=== PATIENT | female | born 1955 | race Caucasian/White ===

== ENCOUNTER 2017-05-03 13:39 | Emergency (ER) | payer OTHER ==
[~2017-05-03] VITALS: Ht 175.3 cm; Wt 90.0 kg
[~2017-05-03 13:39] MED LIST: AMLO2.5T PO; ATOR20TA PO; KETO10 PO; METO25 PO; PARO1CAP PO; ROBA500T PO; TRAM100T19 PO
[2017-05-03 13:49] VITALS: BP 140/65; PULSE 74; RESP 16; TEMP 98.8; O2SAT 98
[2017-05-03] MEDS ORDERED: ESCI20TA PO (14:44)
[2017-05-03] MEDS ORDERED: DILT0.05 PO (14:44)
[2017-05-03] MEDS ORDERED: LOSA50TA2 PO (14:44)
[2017-05-03] MEDS ORDERED: ASPI-516 CHEW (14:44)
--- NOTE | 2017-05-03 15:25 | RADRPT ---
EXAM DATE/TIME: 05/03/2017 14:04 [facility] COMPARISON: KNEE RIGHT COMPLETE (4VWS), October 28, 2010, 13:29. INDICATIONS : Right knee pain after twisting and falling yetserday. MEDICAL HISTORY : Hypertension. Myocardial infarction. SURGICAL HISTORY : section. ACL repair. ENCOUNTER: Initial ACUITY: 2 days PAIN SCORE: 1/10 LOCATION: Right lateral knee. FINDINGS: The osseous structures are intact without evidence for acute fracture. Mild joint space narrowing and osteophyte formation in all 3 compartments. No significant effusion. Redemonstration of probable ost eochondroma in the distal lateral right femur. Soft tissues are unremarkable. CONCLUSION: 1. No acute fracture or dislocation. 2. Mild tricompartmental degenerative osteoarthritis. 3. Stable osteochondroma of the medial distal femur. César Jiang MD on May 03, 2017 at 15:21 Board Certified Radiologist. This report was verified electronically.
[2017-05-03] MEDS ORDERED: NORC5TAB PO (15:36)
--- NOTE | 2017-05-03 15:36 | PD ---
HPI Chief Complaint: Injury Time Seen by Provider: 14:28 Travel History International Travel<30 days: No Contact w/Intl Traveler<30days: No Traveled to known affect area: No History of Present Illness HPI 61 year old female here with right lateral ankle pain and swelling after twisting injury last night. She denies paresthesia or weakness of the extremity. She reports pain with weightbearing and range of motion. Pain scale 5/10. PFSH Past Medical History Blood Disorders: No Anxiety: Yes Depression: Yes Heart Rhythm Problems: Yes (AFIB) Cancer: No Cardiac Catheterization: Yes Cardiovascular Problems: Yes (PALPITATIONS) High Cholesterol: No Chemotherapy: No Chest Pain: Yes Congestive Heart Failure: No Diminished Hearing: No Endocrine: No Genitourinary: No Immune Disorder: No Implanted Vascular Access Dvce: Yes Musculoskeletal: Yes Neurologic: No Psychiatric: Yes Reproductive: No Respiratory: No Immunizations Current: Yes Myocardial Infarction: Yes Influenza Vaccination: No ?: Not LMP: MENOPAUSAL Menopausal: Yes Past Surgical History Abdominal Surgery: No Body Medical Devices: SCREWS AND PLATE IN NECK AT C6 Cardiac Surgery: Yes (CARDIAC CATH, ABLATIONX2) Section: Yes Ear Surgery: No Endocrine Surgery: No Eye Surgery: No Genitourinary Surgery: No Gynecologic Surgery: Yes () Neurologic Surgery: Yes (NECK-C6) Oral Surgery: No Thoracic Surgery: No Other Surgery: Yes (/C-6 FUSION/R KNEE/BREAST AUGMENTATION) Social History Alcohol Use: Yes (MODERATE) Tobacco Use: No Substance Use: No Allergies-Medications (Allergen,Severity, Reaction): Coded Allergies: diatrizoate meglumine (Unverified Allergy, Severe, Hives, 05/03/17) gadobenic acid (Unverified Allergy, Severe, Hives, 05/03/17) gadodiamide (Unverified Allergy, Severe, Hives, 05/03/17) gadoteridol (Unverified Allergy, Severe, Hives, 05/03/17) iodixanol (Unverified Allergy, Severe, Hives, 05/03/17) iohexol (Unverified Allergy, Severe, Hives, 05/03/17) Reported Meds & Prescriptions Reported Meds & Active Scripts Active Reported Losartan-Hydrochlorothiazide 50-12.5 Mg Tab 1 Tab PO DAILY Aspirin 81 Mg Chew 81 Mg CHEW DAILY Escitalopram (Escitalopram Oxalate) 20 Mg Tab 20 Mg PO DAILY Diltiazem ER 24 HR 180 Mg Naveen 180 Mg PO DAILY Review of Systems Except as stated in HPI: all other systems reviewed are Neg Physical Exam Narrative GENERAL: Alert well-appearing female in no distress. SKIN: Warm and dry. HEAD: Normocephalic. EYES: No scleral icterus. No injection or drainage. NECK: Supple, trachea midline. No JVD or lymphadenopathy. MUSCULOSKELETAL: No cyanosis, or edema. Right lower extremity: Notable tenderness and swelling to the lateral malleolus. The joint is stable. 2+ dorsal pedis pulses. Brisk cap refill. Normal sensation BACK: Nontender without obvious deformity. No CVA tenderness. Data Data Last Documented VS Vital Signs Date Time Temp Pulse Resp B/P (MAP) Pulse Ox O2 Delivery O2 Flow Rate FiO2 05/03/17 13:49 98.8 74 16 140/65 (90) 98 Orders Orders Ankle, Complete ([id number]) (05/03/17 13:57) Knee, Complete (4vws) (05/03/17 13:57) Splint Or Brace Apply/Monitor (05/03/17 15:29) Crutches (05/03/17 15:29) MDM Medical Decision Making Medical Screen Exam Complete: Yes Emergency Medical Condition: Yes Differential Diagnosis Ankle fracture, ankle sprain, contusion Narrative Course 61-year-old female with right ankle pain after twisting injury last night. Patient has notable swelling and ecchymosis to the lateral malleolus. The joint is stable. 2+ distal pulses. Normal sensation. X-ray reveal a distal fibular fracture in good alignment. Patient will be splinted and instructed to follow with orthopedics. She verbalizes understanding and agrees to plan Diagnosis Primary Impression: Fracture of distal end of fibula Qualified Codes: S82.831A - Other fracture of upper and lower end of right fibula, initial encounter for closed fracture Referrals: Orthopedist Additional Instructions: Ice and elevate the extremity. Keep the splint in place until follow-up with the orthopedic doctor. Use crutches for weightbearing. Disposition: 01 DISCHARGE HOME Condition: Stable BonifaciothelmaChristal CAPPS May 03, 2017 15:36
[2017-05-03 15:41] VITALS: BP 143/69
--- NOTE | 2017-05-03 15:44 | RADRPT ---
EXAM DATE/TIME: 05/03/2017 14:04 [facility] COMPARISON: No previous studies available for comparison. INDICATIONS : Right ankle pain after twisting ankle yesterday. MEDICAL HISTORY : Hypertension. Myocardial infarction. SURGICAL HISTORY : section. ACL repair. ENCOUNTER: Initial ACUITY: 2 days PAIN SCORE: 6/10 LOCATION: Right lateral ankle. FINDINGS: 3 views of the right ankle demonstrate an oblique minimally displaced fracture of the distal fibular metaphysis. Medially the fracture line extends to the level of the syndesmosis. The distal fragment i s displaced laterally by 2 mm. Ankle mortise is intact. No other fracture is seen. There is lateral a nkle soft tissue swelling. CONCLUSION: There is an acute minimally displaced oblique fracture of the distal fibular metaphysis. Adjacent sof t tissue swelling is present. Alex Lopez MD on May 03, 2017 at 15:41 Board Certified Radiologist. This report was verified electronically.
== END 2017-05-03 15:50 | disposition home or self-care (01) ==
LOC: PHEFT 13:39
DX: S82.831A Other fracture of upper and lower end of right fibula, initial encounter for closed fracture (principal); X50.1XXA Overexertion from prolonged static or awkward postures, initial encounter
CPT/HCPCS: 29515; 73564; 73610; 99283; E0113

== ENCOUNTER 2017-12-08 09:43 | Inpatient (IN) ==
[2017-12-08] MEDS ORDERED: Sodium Chlor 0.9% Inj 500 ML IV.SIG ONE (10:17)
--- NOTE | 2017-12-08 10:19 | ED ---
HPI General Chief Complaint: Recheck/Abnormal Lab/Rx Stated Complaint: Abnormal Labs /send by PCP Time Seen by Provider: 12/08/17 10:11 Source: patient Mode of arrival: ambulatory Limitations: no limitations History of Present Illness HPI narrative: 62-year-old female patient with history of 1 week of nausea, vomiting, diarrhea, not feeling well, weak, had been evaluated with primary care doctor and sent for labs yesterday, comes in sent by primary care physician today because of low sodium and potassium according to her. She denies any vomiting or diarrhea today. She has been having low-grade fever otherwise, denies other issues. Related Data Home Medications Medication Instructions Recorded Confirmed aspirin [Aspirin Low Dose] 81 mg PO DAILY 12/08/17 12/08/17 cetirizine 10 mg PO DAILY 12/08/17 12/08/17 cyanocobalamin (vitamin B-12) 1,000 mcg PO DAILY 12/08/17 12/08/17 [Vitamin B-12] diltiazem HCl 180 mg PO DAILY 12/08/17 12/08/17 escitalopram oxalate 20 mg PO DAILY 12/08/17 12/08/17 losartan-hydrochlorothiazide 1 tab PO DAILY 12/08/17 12/08/17 omeprazole magnesium 20 mg PO DAILY 12/08/17 12/08/17 Allergies Allergy/AdvReac Type Severity Reaction Status Date / Time diatrizoate meglumine Allergy Severe Hives Verified 12/08/17 10:02 gadobenic acid Allergy Severe Hives Verified 12/08/17 10:02 gadodiamide Allergy Severe Hives Verified 12/08/17 10:02 gadoteridol Allergy Severe Hives Verified 12/08/17 10:02 iodixanol Allergy Severe Hives Verified 12/08/17 10:02 iohexol Allergy Severe Hives Verified 12/08/17 10:02 Review of Systems Except as stated in HPI: all other systems reviewed are negative [facility] Medical History Medical History Atrial fibrillation (Acute) HTN (hypertension) (Acute) B12 deficiency (Acute) Depression (Acute) GERD (gastroesophageal reflux disease) (Acute) Surgical History Surgical History History of (Acute) History of breast augmentation (Acute) History of cardiac radiofrequency ablation (Acute) S/P right knee arthroscopy (Acute) Social History Social History Substance History: No History of Abuse Second Hand Smoke Exposure: No Smoking Status: Never smoker How Often Do You Have a Drink Containing Alcohol: 4 or more times a week Recent Travel in [facility] within the Last 8 Weeks: No Recent Out of Country Travel within the Last 8 Weeks: No Exam Narrative Exam Narrative: GENERAL: Well-developed elderly female patient currently in mild distress. Awake and oriented 3. SKIN: Focused skin assessment warm/dry. HEAD: Atraumatic. Normocephalic. EYES: Pupils equal and round. No scleral icterus. No injection or drainage. ENT: No nasal bleeding or discharge. Mucous membranes pink and moist. NECK: Trachea midline. No JVD. CARDIOVASCULAR: Regular rate and rhythm. No murmur appreciated. RESPIRATORY: No accessory muscle use. Clear to auscultation. Breath sounds equal bilaterally. GASTROINTESTINAL: Abdomen soft, non-tender, nondistended. Hepatic and splenic margins not palpable. MUSCULOSKELETAL: No obvious deformities. No clubbing. No cyanosis. No edema. NEUROLOGICAL: Awake and alert. No obvious cranial nerve deficits. Motor grossly within normal limits. Normal speech. PSYCHIATRIC: Appropriate mood and affect; insight and judgment normal. Course Hospital Course: IV fluid normal saline bolus was given in the ER. Lab work shows severe hyponatremia with sodium of 123. Her potassium is okay. She appears to be dehydrated with elevated BUN and creatinine as well. At this point, my plan would be to admit her for further treatment of her electrolyte abnormality. Abdomen is fairly benign and not suspecting acute intra-abdominal process in this case. Case was discussed with Dr. Willson for admission. Initial Documented Vital Signs Temperature 99.1 F 12/08/17 09:58 Pulse Rate 89 12/08/17 09:58 Respiratory Rate 16 12/08/17 09:58 Blood Pressure 123/75 12/08/17 09:58 Pulse Oximetry 99 12/08/17 09:58 Last Documented Vital Signs Temperature 99.1 F 12/08/17 09:58 Pulse Rate 62 12/08/17 10:59 Respiratory Rate 16 12/08/17 10:59 Blood Pressure 120/69 12/08/17 10:59 Pulse Oximetry 97 12/08/17 10:59 Medical Decision Making Differential Diagnosis Differential Diagnosis: Dehydration versus electrolyte abnormalities versus lab error Lab Data Result diagrams: 12/08/17 10:30 12/08/17 10:30 Lab Results 12/08/17 12/08/17 Range/Units 10:30 10:30 CBC w Diff Auto diff final WBC 6.6 (4.0-11.0) th/mm3 RBC 3.89 L (4.00-5.30) mil/mm3 Hgb 13.3 (11.6-15.3) gm/dL Hct 39.1 (35.0-46.0) % MCV 100.6 H (80.0-100.0) fL MCH 34.3 H (27.0-34.0) pg MCHC 34.1 (32.0-36.0) % RDW 12.2 (11.6-17.2) % Plt Count 342 (150-450) th/mm3 MPV 7.7 (7.0-11.0) fL Neut % (Auto) 71.6 H (16.0-70.0) % Lymph % (Auto) 15.1 (9.0-44.0) % [place] % (Auto) 11.7 H (0.0-8.0) % Eos % (Auto) 1.2 (0.0-4.0) % Baso % (Auto) 0.4 (0.0-2.0) % Neut # (Auto) 4.7 (1.8-7.7) th/mm3 Lymph # (Auto) 1.0 (1.0-4.8) th/mm3 [place] # (Auto) 0.8 (0.0-0.9) th/mm3 Eos # (Auto) 0.1 (0.0-0.4) th/mm3 Baso # (Auto) 0.0 (0.0-0.2) th/mm3 WBC Differential . Differential Comment . Sodium 123 L* (136-145) meq/L Potassium 4.9 (3.5-5.1) meq/L Chloride 86 L (98-107) meq/L Carbon Dioxide 25.3 (21.0-32.0) meq/L Anion Gap 12 (5-15) meq/L BUN 29 H (7-18) mg/dL Creatinine 2.20 H (0.50-1.00) mg/dL Estimated GFR 23 L (>89) mL/min Random Glucose 138 H (74-106) mg/dL Calcium 9.7 (8.5-10.1) mg/dL Magnesium 1.2 L (1.5-2.5) mg/dL Total Bilirubin 0.6 (0.2-1.0) mg/dL AST 48 H (15-37) U/L ALT 38 (10-53) U/L Alkaline Phosphatase 127 H (45-117) U/L Total Protein 8.8 H (6.4-8.2) g/dL Albumin 4.0 (3.4-5.0) g/dL Discharge Plan Discharge Disposition Patient Disposition: 30 Still Patient Discharge Condition Condition: Stable Discharge Details Anticipated Discharge Date: 12/08/17 Diagnosis: Acute hyponatremia Physicians Team ED Provider: Sravanthi Calvo Primary Care Provider: Abdoul Green Rxs /Orders / Referrals /Forms Prescriptions: No Action diltiazem HCl 180 mg Capsule,Extended Release 24 Hr 180 mg PO DAILY RF: 0 cetirizine 10 mg Tablet 10 mg PO DAILY RF: 0 aspirin [Aspirin Low Dose] 81 mg Tablet,Delayed Release (Dr/Ec) 81 mg PO DAILY RF: 0 losartan-hydrochlorothiazide 50-12.5 mg Tablet 1 tab PO DAILY RF: 0 escitalopram oxalate 20 mg Tablet 20 mg PO DAILY RF: 0 omeprazole magnesium 20 mg Capsule,Delayed Release(Dr/Ec) 20 mg PO DAILY RF: 0 cyanocobalamin (vitamin B-12) [Vitamin B-12] 1,000 mcg Tablet 1,000 mcg PO DAILY RF: 0 Discharge Interventions Interventions: Vital Signs Last Done: 12/08/17 10:59 Status ED Status: With Doctor
[2017-12-08 10:58] LABS: Baso % (Auto) 0.4 % (0.0-2.0); Eos # (Auto) 0.1 th/mm3 (0.0-0.4); Eos % (Auto) 1.2 % (0.0-4.0); Hematocrit 39.1 % (35.0-46.0); Hemoglobin 13.3 gm/dL (11.6-15.3); Lymph % (Auto) 15.1 % (9.0-44.0); Mean Corpuscular HGB Conc 34.1 % (32.0-36.0); Mean Corpuscular Hemoglobin 34.3 pg (27.0-34.0); Mean Corpuscular Volume 100.6 fL (80.0-100.0); Mean Platelet Volume 7.7 fL (7.0-11.0); Mono # (Auto) 0.8 th/mm3 (0.0-0.9); Mono % (Auto) 11.7 % (0.0-8.0); Neut # (Auto) 4.7 th/mm3 (1.8-7.7); Neut % (Auto) 71.6 % (16.0-70.0); Platelet Count 342 th/mm3 (150-450); Red Blood Count 3.89 mil/mm3 (4.00-5.30); Red Cell Distribution Width 12.2 % (11.6-17.2); White Blood Count 6.6 th/mm3 (4.0-11.0)
[2017-12-08 11:18] LABS: Alanine Aminotransferase 38 U/L (10-53); Alkaline Phosphatase 127 U/L (45-117); Anion Gap 12 meq/L (5-15); Aspartate Aminotransferase 48 U/L (15-37); Blood Urea Nitrogen 29 mg/dL (7-18); Calcium 9.7 mg/dL (8.5-10.1); Carbon Dioxide 25.3 meq/L (21.0-32.0); Chloride 86 meq/L (98-107); Glomerular Filtration Rate 23 mL/min (>89); Glucose,Random 138 mg/dL (74-106); Magnesium 1.2 mg/dL (1.5-2.5); Total Protein 8.8 g/dL (6.4-8.2)
[2017-12-08 11:20] LABS: Potassium 4.9 meq/L (3.5-5.1); Sodium 123 meq/L (136-145)
[2017-12-08] MEDS ORDERED: Bisacodyl 10 MG Supp RECTAL PRN (12:33)
[2017-12-08] MEDS ORDERED: Temazepam 15 MG Capsule PO PRN (12:33)
[2017-12-08] MEDS ORDERED: Acetaminophen 325 MG Tablet PO PRN (12:33)
[2017-12-08] MEDS: Heparin - SQ 10,000 UNITS/ML Vial SQ SCH ×2 (12:56→23:53)
[2017-12-08] MEDS: Sod Chloride 0.9% Inj 1,000 ML IV.CONT SCH ×2 (12:56→21:45)
[2017-12-08] MEDS ORDERED: Haloperidol Inj 5 MG/ML Ampul IV.PUSH PRN (14:01)
[2017-12-08] MEDS ORDERED: LORazepam 1 MG Tablet PO PRN (14:01)
--- NOTE | 2017-12-08 14:03 | P.HP ---
History of Present Illness Primary Care Physician: Abdoul Green MD History of Present Illness: This is a pleasant 62-year-old female patient with a known medical history of alcohol abuse, hypertension and atrial fibrillation who presented to the ED with complaints of nausea, vomiting, diarrhea and fatigue 1 week. Patient also states that she had a subjective fever of 101.3 yesterday took Tylenol. Patient also admits to a 6 pound weight loss over the past week she has been unable to eat anything by mouth without vomiting it up. Patient denies any sick contacts. Patient also admits to diarrhea, clear in color. Also admits to drinking 4 alcoholic drinks per day. Patient visited her primary care doctor , was sent for labs and was told to come to the hospital due to hyponatremia. Upon presentation patient's labs sodium 123, creatinine 2.2, GFR 23, mag 1.2, K4.9. Patient will be admitted to the hospital for IV fluids and electrolytes monitoring. PCP was seen yesterday, no changes to her medicines. She denies any history of kidney disease. - Diagnosis (1) Acute hyponatremia (2) Acute kidney injury (3) Alcohol abuse Inpatient Certification: I certify that the inpatient services were ordered in accordance with Medicare regulations governing the order. This includes certification that hospital inpatient services are reasonable and necessary and in the case of services not specified as inpatient-only under 42 CFR 419.22(n), that they are appropriately provided as inpatient services in accordance to with the 2-midnight benchmark under 43 CFR 412.3(e) Estimated Total Length of Stay (Days): 3 Plans for Post Hospital Care: Home Review of Systems All other systems reviewed negative except as stated in HPI PMFSH - History History Provided By: Patient - Medical History Medical History: Medical History (Last Updated 12/08/17 @ 10:26 by Anya Villarreal) Atrial fibrillation HTN (hypertension) B12 deficiency Depression GERD (gastroesophageal reflux disease) - Surgical History Surgical History: Surgical History (Last Reviewed 12/08/17 @ 10:18 by Sravanthi Calvo MD) History of History of breast augmentation History of cardiac radiofrequency ablation S/P right knee arthroscopy - Family History Family History: Family History (Last Updated 12/08/17 @ 13:56 by Jolynn Narvaez) Mother Heart attack - Tobacco History Second Hand Smoke Exposure: No Smoking Status: Never smoker - Alcohol History How Often Do You Have a Drink Containing Alcohol: 4 or more times a week - Substance Use History Substance History: No History of Abuse - Travel History Recent Travel in the [place] Within the Last 8 Weeks: No Recent Travel Out of the Country Within the Last 8 Weeks: No - Immunization History Tetanus Immunization: >5 Years Hx Influenza Vaccine This Season: No Medications and Allergies Active Medications: Active Medications Acetaminophen (Tylenol) 650 mg PO Q4H PRN PRN Reason: Temp > 100.4 Al Hydroxide/Mg Hydroxide (Milk Of Magnesia Liq) 30 ml PO Q12H PRN PRN Reason: Mild Constipation Bisacodyl (Dulcolax Supp) 10 mg RECTAL DAILY PRN PRN Reason: SEVERE CONSITIPATION Heparin Sodium (Porcine) (Heparin Inj) 5,000 units SQ Q12H [facility] Last Admin: 12/08/17 12:56 Dose: 5,000 units Sodium Chloride (Ns Inj) 1,000 mls @ 100 mls/hr IV.CONT .Q10H [facility] Last Admin: 12/08/17 12:56 Dose: 100 mls/hr Lactulose (Lactulose Liq) 30 ml PO DAILY PRN PRN Reason: SEVERE CONSITIPATION Ondansetron HCl (Zofran Inj) 4 mg IV.PUSH Q6H PRN PRN Reason: NAUSEA OR VOMITING Senna/Docusate Sodium ([place]-Colace) 1 tab PO BID [facility] Sennosides (Senokot) 17.2 mg PO Q12H PRN PRN Reason: Moderate Constipation Temazepam (Restoril) 15 mg PO HS PRN PRN Reason: INSOMNIA Allergies Allergy/AdvReac Type Severity Reaction Status Date / Time diatrizoate meglumine Allergy Severe Hives Verified 12/08/17 10:02 gadobenic acid Allergy Severe Hives Verified 12/08/17 10:02 gadodiamide Allergy Severe Hives Verified 12/08/17 10:02 gadoteridol Allergy Severe Hives Verified 12/08/17 10:02 iodixanol Allergy Severe Hives Verified 12/08/17 10:02 iohexol Allergy Severe Hives Verified 12/08/17 10:02 Home Medications Medication Instructions Recorded Confirmed Type aspirin [Aspirin Low Dose] 81 mg PO DAILY 12/08/17 12/08/17 History cetirizine 10 mg PO DAILY 12/08/17 12/08/17 History cyanocobalamin (vitamin B-12) 1,000 mcg PO DAILY 12/08/17 12/08/17 History [Vitamin B-12] diltiazem HCl 180 mg PO DAILY 12/08/17 12/08/17 History escitalopram oxalate 20 mg PO DAILY 12/08/17 12/08/17 History losartan-hydrochlorothiazide 1 tab PO DAILY 12/08/17 12/08/17 History omeprazole magnesium 20 mg PO DAILY 12/08/17 12/08/17 History Exam Vital signs: Vital Signs 12/08/17 09:58 12/08/17 10:07 12/08/17 10:59 Temperature 99.1 F Pulse Rate 89 71 62 Respiratory Rate 16 16 16 Blood Pressure 123/75 97/62 L 120/69 Pulse Oximetry 99 97 97 12/08/17 12:36 Temperature Pulse Rate 62 Respiratory Rate 18 Blood Pressure 130/74 Pulse Oximetry Intake & Output 12/07/17 12/08/17 12/08/17 18:59 06:59 18:59 Weight 87.6 kg Narrative: GENERAL: Well-developed, well-nourished patient in [facility]. SKIN: Warm and dry. No rash. HEAD: Normocephalic. Atraumatic. EYES: Pupils equal and round. No scleral icterus. No injection or drainage. ENT: No nasal bleeding or discharge. Mucous membranes pink and moist. NECK: Supple. Trachea midline. CARDIOVASCULAR: Regular rate and rhythm. S1, S2 noted. No murmur appreciated. RESPIRATORY: No accessory muscle use. Clear to auscultation. Breath sounds equal bilaterally. GASTROINTESTINAL: Abdomen soft, non-tender, nondistended. Normoactive bowel sounds x4. MUSCULOSKELETAL: No obvious deformities. Extremities without clubbing, cyanosis , or edema. NEUROLOGICAL: Awake and alert. No obvious cranial nerve deficits. Motor grossly within normal limits. 5/5 muscle strength in bilateral upper and lower extremities. Normal speech. PSYCHIATRIC: Appropriate mood and affect; insight and judgment normal. Results - Labs CBC & Chem 7: 12/08/17 10:30 12/08/17 10:30 Labs: Laboratory Results - last 24 hr 12/08/17 12/08/17 10:30 10:30 CBC w Diff Auto diff final WBC 6.6 RBC 3.89 L Hgb 13.3 Hct 39.1 MCV 100.6 H MCH 34.3 H MCHC 34.1 RDW 12.2 Plt Count 342 MPV 7.7 Neut % (Auto) 71.6 H Lymph % (Auto) 15.1 [place] % (Auto) 11.7 H Eos % (Auto) 1.2 Baso % (Auto) 0.4 Neut # (Auto) 4.7 Lymph # (Auto) 1.0 [place] # (Auto) 0.8 Eos # (Auto) 0.1 Baso # (Auto) 0.0 WBC Differential . Differential Comment . Sodium 123 L* Potassium 4.9 Chloride 86 L Carbon Dioxide 25.3 Anion Gap 12 BUN 29 H Creatinine 2.20 H Estimated GFR 23 L Random Glucose 138 H Calcium 9.7 Magnesium 1.2 L Total Bilirubin 0.6 AST 48 H ALT 38 Alkaline Phosphatase 127 H Total Protein 8.8 H Albumin 4.0 Caprini VTE Risk Assessment Caprini VTE Risk Assessment: Moderate/High Risk (score >= 2) Caprini Risk Assessment Model: Point Value = 1 Point Value = 2 Point Value = 3 Point Value = 5 Age 41-60 Minor surgery BMI > 25 kg/m2 Swollen legs Varicose veins or History of unexplained or recurrent spontaneous Oral contraceptives or hormone replacement Sepsis (< 1 month) Serious lung disease, including pneumonia (< 1 month) Abnormal pulmonary function Acute myocardial infarction Congestive heart failure (< 1 month) History of inflammatory bowel disease Medical patient at bed rest Age 61-74 Arthroscopic surgery Major open surgery (> 45 min) Laparoscopic surgery (> 45 min) Malignancy Confined to bed (> 72 hours) Immobilizing plaster cast Central venous access Age >= 75 History of VTE Family history of VTE Factor V Leiden Prothrombin [id number] Lupus anticoagulant Anticardiolipin antibodies Elevated serum homocysteine Heparin-induced thrombocytopenia Other congenital or acquired thrombophilia Stroke (< 1 month) Elective arthroplasty Hip, pelvis, or leg fracture Acute spinal cord injury (< 1 month) Prophylaxis Regimen: Total Risk Factor Score Risk Level Prophylaxis Regimen 0-1 Low Early ambulation 2 Moderate Order ONE of the following: *Sequential Compression Device (SCD) *Heparin 5000 units SQ BID 3-4 Higher Order ONE of the following medications: *Heparin 5000 units SQ TID *Enoxaparin/Lovenox 40 mg SQ daily (WT < 150 kg, CrCl > 30 mL/min) *Enoxaparin/Lovenox 30 mg SQ daily (WT < 150 kg, CrCl > 10-29 mL/min) *Enoxaparin/Lovenox 30 mg SQ BID (WT < 150 kg, CrCl > 30 mL/min) AND/OR *Sequential Compression Device (SCD) 5 or more Highest Order ONE of the following medications: *Heparin 5000 units SQ TID (Preferred with Epidurals) *Enoxaparin/Lovenox 40 mg SQ daily (WT < 150 kg, CrCl > 30 mL/min) *Enoxaparin/Lovenox 30 mg SQ daily (WT < 150 kg, CrCl > 10-29 mL/min) *Enoxaparin/Lovenox 30 mg SQ BID (WT < 150 kg, CrCl > 30 mL/min) AND *Sequential Compression Device (SCD) Assessment and Plan - Assessment (1) Acute hyponatremia Code(s): E87.1 - Hypo-osmolality and hyponatremia Status: Acute Plan: Patient presented with nausea, vomiting and diarrhea 1 week. Hyponatremia suspect secondary to said complaints. Sodium 123 on presentation. Potassium 4.9. Will continue IV fluid. Was given 500 mL bolus in ED. Check labs in a.m. Attempt to provide p.o. food intake, assess tolerability. Zofran available as needed for nausea. Continue to monitor. Supportive care. (2) Acute kidney injury Code(s): N17.9 - Acute kidney failure, unspecified Status: Acute Plan: Likely secondary to dehydration from nausea, vomiting and diarrhea. Will check stool studies. IV hydration. Monitor for infection and fever. Check BMP in a.m. (3) Alcohol abuse Code(s): F10.10 - Alcohol abuse, uncomplicated Status: Acute Plan: Alcohol may be contributing to the left side imbalance. Patient denies ever having withdrawals from alcohol in the past. Will place on CIWA protocol. Monitor for withdrawals. Seizure precautions. Encourage cessation. DVT prophylaxis: SCDs. Heparin.
--- NOTE | 2017-12-08 14:06 | ECG ---
Date Performed: 12/08/2017 Time Performed: 10:24:18 PTAGE: 62 years EKG: Sinus rhythm NORMAL ECG Compared to prior electrocardiogram, Rate has increased and nonspecific ST T-wave marcelo es have resolved. PREVIOUS TRACING : 05/28/2013 00.31 DOCTOR: Javier David Interpretating Date/Time 12/08/2017 14:05:01
[2017-12-08] MEDS: Mag Sulf 1 gm/100 ml Premix 100 ML IV.SIG SCH ×2 (14:39→15:43)
[2017-12-08 17:17] LABS: Bilirubin,Urine Negative (Negative); Clarity,Urine Slightly Cloudy (Clear); Color,Urine Yellow (Yellw/Straw); Glucose,Urine (UA) Negative (Negative); Leukocyte Esterase,Urine Moderate (Negative); Nitrite,Urine Negative (Negative); PH,Urine 5.5 (5.0-8.5); Urobilinogen,Urine 0.2 mg/dL (Less than 2)
[2017-12-08 17:26] LABS: WBC,Urine 51-189 /hpf (0-5)
[2017-12-08 17:27] LABS: Bacteria,Urine Many /hpf; Squamous Epithelial Cell,Urine 0-5 /hpf (0-5)
[2017-12-08] MEDS: Senna/Docusate Sodium 8.6/50 MG Tablet PO SCH (21:46)
[2017-12-09 05:36] LABS: Baso % (Auto) 0.4 % (0.0-2.0); Eos # (Auto) 0.1 th/mm3 (0.0-0.4); Eos % (Auto) 2.1 % (0.0-4.0); Hematocrit 32.1 % (35.0-46.0); Hemoglobin 11.7 gm/dL (11.6-15.3); Lymph # (Auto) 1.4 th/mm3 (1.0-4.8); Lymph % (Auto) 25.4 % (9.0-44.0); Mean Corpuscular Volume 101.6 fL (80.0-100.0); Mean Platelet Volume 7.8 fL (7.0-11.0); Mono # (Auto) 0.9 th/mm3 (0.0-0.9); Mono % (Auto) 16.2 % (0.0-8.0); Neut # (Auto) 3.1 th/mm3 (1.8-7.7); Neut % (Auto) 55.9 % (16.0-70.0); Platelet Count 272 th/mm3 (150-450); Red Blood Count 3.16 mil/mm3 (4.00-5.30); Red Cell Distribution Width 12.6 % (11.6-17.2); White Blood Count 5.5 th/mm3 (4.0-11.0)
[2017-12-09 06:00] LABS: Mean Corpuscular HGB Conc 36.4 % (32.0-36.0)
[2017-12-09 06:47] LABS: Carbon Dioxide 26.9 meq/L (21.0-32.0); Potassium 4.8 meq/L (3.5-5.1)
[2017-12-09] MEDS: Senna/Docusate Sodium 8.6/50 MG Tablet PO SCH ×2 (08:06→20:37)
[2017-12-09] MEDS: Sod Chloride 0.9% Inj 1,000 ML IV.CONT SCH ×2 (08:07→18:38)
--- NOTE | 2017-12-09 08:25 | P.PNIM ---
Subjective Interval history: Follow-up hyponatremia, [place] I. Patient seen and examined, sitting on side of bed comfortably no apparent distress. Much improved. Sodium up today. Tolerating p.o. intake. Vital signs stable. Afebrile. Will continue IV fluids. Encourage p.o. intake. No signs of withdrawal. Physical Exam Vital signs: Vital Signs 12/08/17 09:58 12/08/17 10:07 12/08/17 10:59 Temperature 99.1 F Pulse Rate 89 71 62 Respiratory Rate 16 16 16 Blood Pressure 123/75 97/62 L 120/69 Pulse Oximetry 99 97 97 12/08/17 12:36 12/08/17 13:45 12/08/17 15:52 Temperature Pulse Rate 62 76 65 Respiratory Rate 18 18 18 Blood Pressure 130/74 133/63 133/68 Pulse Oximetry 97 12/08/17 17:45 12/08/17 18:44 12/08/17 20:00 Temperature 99 F Pulse Rate 75 75 63 Respiratory Rate 18 20 Blood Pressure 158/82 H 165/89 H Pulse Oximetry 98 97 12/09/17 00:00 12/09/17 04:00 Temperature 98.2 F 96.9 F L Pulse Rate 60 64 Respiratory Rate 20 20 Blood Pressure 141/76 H 179/80 H Pulse Oximetry 98 98 Intake & Output 12/08/17 12/09/17 12/09/17 18:59 06:59 18:59 Intake Total 100 / 100 1240 / 1240 450 / 450 Balance 100 / 100 1240 / 1240 450 / 450 Weight 87.6 kg 87.5 kg Intake: IV 100 / 100 1000 / 1000 450 / 450 NS Inj 1,000 ML @ 100 mls/hr IV 1000 / 1000 450 / 450 .CONT .Q10H [facility] Rx#:[id number] Magnesium Sulfate 1 gm/D5W 100 100 / 100 ml Premix 100 ML @ 100 mls/hr IV.SIG Q1H [facility]AN[facility] Rx#:[id number] Oral 240 / 240 Other: # Voids 2 Narrative: GENERAL: Well-developed, well-nourished patient in [facility]. SKIN: Warm and dry. No rash. HEAD: Normocephalic. Atraumatic. EYES: Pupils equal and round. No scleral icterus. No injection or drainage. ENT: No nasal bleeding or discharge. Mucous membranes pink and moist. NECK: Supple. Trachea midline. CARDIOVASCULAR: Regular rate and rhythm. S1, S2 noted. No murmur appreciated. RESPIRATORY: No accessory muscle use. Clear to auscultation. Breath sounds equal bilaterally. GASTROINTESTINAL: Abdomen soft, non-tender, nondistended. Normoactive bowel sounds x4. MUSCULOSKELETAL: No obvious deformities. Extremities without clubbing, cyanosis , or edema. NEUROLOGICAL: Awake and alert. No obvious cranial nerve deficits. Motor grossly within normal limits. 5/5 muscle strength in bilateral upper and lower extremities. Normal speech. PSYCHIATRIC: Appropriate mood and affect; insight and judgment normal. Results - Labs CBC & Chem 7: 12/09/17 04:45 12/09/17 04:45 Laboratory Results - last 24 hr 12/08/17 12/08/17 12/08/17 10:30 10:30 17:00 CBC w Diff Auto diff final WBC 6.6 RBC 3.89 L Hgb 13.3 Hct 39.1 MCV 100.6 H MCH 34.3 H MCHC 34.1 RDW 12.2 Plt Count 342 MPV 7.7 Neut % (Auto) 71.6 H Lymph % (Auto) 15.1 Christian % (Auto) 11.7 H Eos % (Auto) 1.2 Baso % (Auto) 0.4 Neut # (Auto) 4.7 Lymph # (Auto) 1.0 Christian # (Auto) 0.8 Eos # (Auto) 0.1 Baso # (Auto) 0.0 WBC Differential . Diff Scan Differential Comment . Sodium 123 L* Potassium 4.9 Chloride 86 L Carbon Dioxide 25.3 Anion Gap 12 BUN 29 H Creatinine 2.20 H Estimated GFR 23 L Random Glucose 138 H Calcium 9.7 Magnesium 1.2 L Total Bilirubin 0.6 AST 48 H ALT 38 Alkaline Phosphatase 127 H Total Protein 8.8 H Albumin 4.0 Urine Color Yellow Urine Clarity Slightly cloudy Urine pH 5.5 Ur Specific [place] 1.010 Urine Protein Negative Urine Glucose (UA) Negative Urine Ketones Negative Urine Occult Blood Trace Urine Nitrate Negative Urine Bilirubin Negative Urine Urobilinogen 0.2 Ur Leukocyte Esterase Moderate H Urine WBC 51-189 H Urine WBC Clumps Moderate H Ur Squamous Epith Cells 0-5 Ur Transition Epith Cell 1-5 H Urine Bacteria Many H Micro UA Comment Culture indicated Urine Culture Comments Culture indicated 12/09/17 12/09/17 12/09/17 04:45 04:45 04:45 CBC w Diff Slide review pending WBC 5.5 RBC 3.16 L Hgb 11.7 Hct 32.1 L MCV 101.6 H MCH 37.0 H MCHC 36.4 H RDW 12.6 Plt Count 272 MPV 7.8 Neut % (Auto) 55.9 Lymph % (Auto) 25.4 Christian % (Auto) 16.2 H Eos % (Auto) 2.1 Baso % (Auto) 0.4 Neut # (Auto) 3.1 Lymph # (Auto) 1.4 Christian # (Auto) 0.9 Eos # (Auto) 0.1 Baso # (Auto) 0.0 WBC Differential . Diff Scan Auto diff confirmed Differential Comment . Sodium 129 L Potassium 4.8 Chloride 94 L D Carbon Dioxide 26.9 Anion Gap 8 BUN 31 H Creatinine 1.80 H Estimated GFR 28 L Random Glucose 122 H Calcium 9.0 Magnesium 2.0 D Total Bilirubin AST ALT Alkaline Phosphatase Total Protein Albumin Urine Color Urine Clarity Urine pH Ur Specific [place] Urine Protein Urine Glucose (UA) Urine Ketones Urine Occult Blood Urine Nitrate Urine Bilirubin Urine Urobilinogen Ur Leukocyte Esterase Urine WBC Urine WBC Clumps Ur Squamous Epith Cells Ur Transition Epith Cell Urine Bacteria Micro UA Comment Urine Culture Comments Assessment and Plan - Assessment (1) Acute hyponatremia Code(s): E87.1 - Hypo-osmolality and hyponatremia Status: Acute Plan: Patient presented with nausea, vomiting and diarrhea 1 week. Hyponatremia suspect secondary to said complaints. Sodium 123 on presentation. Increased today. We will continue to monitor BMP. Potassium normal. Will continue IV fluid. Was given 500 mL bolus in ED. tolerating p.o. intake without any nausea. Zofran available as needed for nausea. Continue to monitor. Supportive care. (2) Acute kidney injury Code(s): N17.9 - Acute kidney failure, unspecified Status: Acute Plan: Likely secondary to dehydration from nausea, vomiting and diarrhea. Will check stool studies. IV hydration. Monitor for infection and fever. Diarrhea improving. Creatinine improved today. Continue to follow. (3) Alcohol abuse Code(s): F10.10 - Alcohol abuse, uncomplicated Status: Acute Plan: Alcohol may be contributing to the left side imbalance. Patient denies ever having withdrawals from alcohol in the past. Will place on CIWA protocol. Monitor for withdrawals. Seizure precautions. Encourage cessation. No signs of withdrawal. DVT prophylaxis: SCDs. Heparin. (4) Abnormal urinalysis Code(s): R82.90 - Unspecified abnormal findings in urine Status: Acute Plan: Awaiting urine cx. Started on Cipro. - Plan Recheck BMp at 1500. If patients labs stabilize patient will be able to be DCd home. Awaiting urine culture as well. Started on Cipro.
[2017-12-09] MEDS ORDERED: Non-Formulary Drug (Losartan-Hydrochlorothiazide [Losartan-Hydrochlorothiazide] 1 TAB) PO SCH (09:00)
[2017-12-09] MEDS: Pantoprazole Sodium 20 MG DR Tablet PO SCH (09:16)
[2017-12-09] MEDS: Ciprofloxacin 250 MG Tablet PO SCH ×2 (09:16→20:37)
[2017-12-09] MEDS: dilTIAZem CD 180 MG Capsule PO SCH (09:16)
[2017-12-09] MEDS: Heparin - SQ 10,000 UNITS/ML Vial SQ SCH (12:30)
[2017-12-09 15:05] LABS: Potassium 4.3 meq/L (3.5-5.1)
[2017-12-09 15:07] LABS: Calcium 8.5 mg/dL (8.5-10.1)
[2017-12-09 15:08] LABS: Carbon Dioxide 22.6 meq/L (21.0-32.0)
[2017-12-10] MEDS: Heparin - SQ 10,000 UNITS/ML Vial SQ SCH (00:29)
[2017-12-10] MEDS: Sod Chloride 0.9% Inj 1,000 ML IV.CONT SCH (04:45)
[2017-12-10 06:22] LABS: Potassium 4.2 meq/L (3.5-5.1)
[2017-12-10 06:27] LABS: Calcium 8.8 mg/dL (8.5-10.1)
[2017-12-10 06:28] LABS: Carbon Dioxide 23.3 meq/L (21.0-32.0)
--- NOTE | 2017-12-10 07:34 | P.DS ---
Date of admission: 12/08/17 13:54 Primary care physician: Abdoul Green MD Brief History from admission: This is a pleasant 62-year-old female patient with a known medical history of alcohol abuse, hypertension and atrial fibrillation who presented to the ED with complaints of nausea, vomiting, diarrhea and fatigue 1 week. Patient also states that she had a subjective fever of 101.3 yesterday took Tylenol. Patient also admits to a 6 pound weight loss over the past week she has been unable to eat anything by mouth without vomiting it up. Patient denies any sick contacts. Patient also admits to diarrhea, clear in color. Also admits to drinking 4 alcoholic drinks per day. Patient visited her primary care doctor , was sent for labs and was told to come to the hospital due to hyponatremia. Upon presentation patient's labs sodium 123, creatinine 2.2, GFR 23, mag 1.2, K4.9. Patient will be admitted to the hospital for IV fluids and electrolytes monitoring. PCP was seen yesterday, no changes to her medicines. She denies any history of kidney disease. DS: Diagnosis - Discharge Diagnosis (1) Acute hyponatremia Status: Acute (2) Acute kidney injury Status: Acute (3) Alcohol abuse Status: Acute (4) Abnormal urinalysis Status: Acute DS: Medications - Discharge Medications Prescriptions: ciprofloxacin HCl 250 mg PO Q12HR 12 Days #24 tab DS: Summary Hospital Course: This is a 62-year-old female patient presented with acute hyponatremia, hyponatremia improved with IV fluids. Was able to tolerate p.o. intake without any nausea or vomiting. Acute kidney injury improved this was secondary to dehydration and vomiting as well as diarrhea. C. difficile was negative. Diarrhea improved before discharge. Abnormal UA, culture growing klebsiella pneumoniae sensitive to Cipro, sent home on antibiotics. Will follow culture. Follow-up with PCP. Labs stable. Vital signs stable. - Time Spent with Patient Total time spent providing and/or coordinating discharge services: Greater than 30 minutes - Quality: VTE Deep Vein Thrombosis/Pulmonary Embolism Present on Admission: No Exam Vital signs: Vital Signs 12/09/17 08:42 12/09/17 12:17 12/09/17 17:22 Temperature 97.5 F L 97.6 F 97.3 F L Pulse Rate 62 57 L 59 L Respiratory Rate 18 16 18 Blood Pressure 174/95 H 163/76 H 149/78 H Pulse Oximetry 98 98 100 12/09/17 20:00 12/10/17 00:00 12/10/17 04:00 Temperature 98.4 F 98.3 F 97.8 F Pulse Rate 63 71 63 Respiratory Rate 18 Blood Pressure 178/98 H 133/80 129/67 Pulse Oximetry 100 100 99 Intake & Output 12/09/17 12/10/17 12/10/17 18:59 06:59 18:59 Intake Total 1450 / 1450 1480 / 1480 Balance 1450 / 1450 1480 / 1480 Weight 87 kg Intake: IV 1450 / 1450 1000 / 1000 NS Inj 1,000 ML @ 100 mls/hr IV 1450 / 1450 1000 / 1000 .CONT .Q10H [facility] Rx#:[id number] Oral 480 / 480 Other: # Voids 3 # Bowel Movements 0 Narrative: GENERAL: Well-developed, well-nourished patient in [facility]. SKIN: Warm and dry. No rash. HEAD: Normocephalic. Atraumatic. EYES: Pupils equal and round. No scleral icterus. No injection or drainage. ENT: No nasal bleeding or discharge. Mucous membranes pink and moist. NECK: Supple. Trachea midline. CARDIOVASCULAR: Regular rate and rhythm. S1, S2 noted. No murmur appreciated. RESPIRATORY: No accessory muscle use. Clear to auscultation. Breath sounds equal bilaterally. GASTROINTESTINAL: Abdomen soft, non-tender, nondistended. Normoactive bowel sounds x4. MUSCULOSKELETAL: No obvious deformities. Extremities without clubbing, cyanosis , or edema. NEUROLOGICAL: Awake and alert. No obvious cranial nerve deficits. Motor grossly within normal limits. 5/5 muscle strength in bilateral upper and lower extremities. Normal speech. PSYCHIATRIC: Appropriate mood and affect; insight and judgment normal. - Constitutional no acute distress - Routine HEENT Exam Head: Present: normocephalic Eye: Present: EOMI, PERRL ENT: Present: mucous membranes moist - Routine Neck Exam Present: supple Results Procedures completed during hospitalization: See below. Labs on day of discharge: Labs from last 24 hours 12/10/17 12/09/17 12/09/17 04:50 14:45 04:45 Sodium 134 L 128 L Potassium 4.2 4.3 Chloride 101 96 L Carbon Dioxide 23.3 22.6 Anion Gap 10 9 BUN 22 H 27 H Creatinine 1.30 H 1.50 H Estimated GFR 41 L 35 L Random Glucose 107 H 142 H Calcium 8.8 8.5 Magnesium 2.0 D Urine Color Urine Clarity Urine pH Ur Specific [place] Urine Protein Urine Glucose (UA) Urine Ketones Urine Occult Blood Urine Nitrate Urine Bilirubin Urine Urobilinogen Ur Leukocyte Esterase Urine WBC Urine WBC Clumps Ur Squamous Epith Cells Ur Transition Epith Cell Urine Bacteria Micro UA Comment Urine Culture Comments 12/08/17 17:00 Sodium Potassium Chloride Carbon Dioxide Anion Gap BUN Creatinine Estimated GFR Random Glucose Calcium Magnesium Urine Color Yellow Urine Clarity Slightly cloudy Urine pH 5.5 Ur Specific [place] 1.010 Urine Protein Negative Urine Glucose (UA) Negative Urine Ketones Negative Urine Occult Blood Trace Urine Nitrate Negative Urine Bilirubin Negative Urine Urobilinogen 0.2 Ur Leukocyte Esterase Moderate H Urine WBC 51-189 H Urine WBC Clumps Moderate H Ur Squamous Epith Cells 0-5 Ur Transition Epith Cell 1-5 H Urine Bacteria Many H Micro UA Comment Culture indicated Urine Culture Comments Culture indicated Preliminary micro results at discharge 12/08/17 17:00 Urine Culture - Preliminary Clean Catch Urine gram negative rods Discharge Plan - Discharge Disposition Patient Disposition: 01 Discharge Home - Discharge Condition Condition: Stable - Discharge Order Discharge Orders: Discharge Order (Routine); Ordered 12/10/17 Ordered By: Jolynn Narvaez - Discharge Details Anticipated Discharge Date: 12/08/17 - Physicians Team Primary Care Provider: Abdoul Green Attending Provider: Melissa Ribeiro
[2017-12-10] MEDS: Pantoprazole Sodium 20 MG DR Tablet PO SCH (08:57)
[2017-12-10] MEDS: Ciprofloxacin 250 MG Tablet PO SCH (08:57)
[2017-12-10] MEDS: dilTIAZem CD 180 MG Capsule PO SCH (08:57)
[2017-12-10] MEDS: Senna/Docusate Sodium 8.6/50 MG Tablet PO SCH (08:58)
== END 2017-12-10 09:12 | disposition home or self-care (01) ==
LOC: PHED 09:43 → PHEDA 09:43 → PH3 19:06
PROVIDERS: ADMIT Hospitalist; ATTEND Hospitalist